=== PATIENT | female | born 1940 | race Caucasian/White ===

== ENCOUNTER 2021-10-11 15:43 | Emergency (ER) | payer OTHER ==
[~2021-10-11] VITALS: Ht 152.4 cm; Wt 117.9 kg
[2021-10-11] MEDS ORDERED: LOSARTAN POTAS100 MG PO (16:10)
[2021-10-11] MEDS ORDERED: MONTELUKAST SOD10 MG PO (16:10)
== END 2021-10-11 18:16 | disposition home or self-care (01) ==
LOC: ER 15:43
DX: U07.1 COVID-19 (principal); J45.909 Unspecified asthma, uncomplicated; Z88.6 Allergy status to analgesic agent; Z88.0 Allergy status to penicillin; I10 Essential (primary) hypertension